=== PATIENT | female | born 1990 | race Caucasian/White ===

== ENCOUNTER 2020-03-31 12:43 | Inpatient (IN) | payer OTHER ==
[~2020-03-31] VITALS: Ht 152.4 cm; Wt 25.6 kg
[~2020-03-31 12:43] MED LIST: DEP125 PO; KLO1 PO; PHENOBARBITAL PO
[2020-03-31 12:56] VITALS: Ht 152.4 cm; Wt 25.6 kg
--- NOTE | 2020-03-31 13:30 | NUR ---
PT BIB MOM C/O ABSCESS TO RECTAL REGION X 2 DAYS. MOM REPORTS ABSCESS APPEARED 2 DAYS AGO AND SHE HAS BEEN PUTTING "STEROID CREAM" ON IT. PT MOM REPORTS "I THINK IT IS PAINFUL BECAUSE SHE WINSES WHEN I PUT THE CREAM ON". RED, INFLAMED SKIN NOTED TO LEFT SIDE OF RECTAL REGION. NO BLEEDING OR DISCHARGE NOTED. PT NOTED IN BRIEFS AT THIS TIME. MOM REPORTS PT HX OF CEREBRAL PALSEY, PT WHEELCHAIR BOUND AND NONVERBAL, PER MOM THIS IS PT BASELINE. PT GOWNED AND PLACED ON FULL CM, NSR NOTED. BOTH SIDE RAILS UP FOR FALL PRECAUTIONS. MSE COMPLETED BY DR DONG. MOM AT THE BEDSIDE. WHEELCHAIR IN PT ROOM.
[2020-03-31 14:10] LABS: PLATELET COUNT 231 x10^3mcL (130-400); RED CELL DISTRIBUTION WIDTH 13.4 % (11.5-14.5)
[2020-03-31 14:24] LABS: CALCIUM 8.4 mg/dL (8.5-10.1); CARBON DIOXIDE 30.2 mmol/L (21-32); CHLORIDE SERUM 103 mmol/L (98-107); CREATININE SERUM 0.4 mg/dL (0.6-1.0); GFR1 > 60 mL/min; GLUCOSE SERUM 95 mg/dL (74-106); SODIUM SERUM 138 mmol/L (136-145)
[2020-03-31 14:28] LABS: ALKALINE PHOSPHATASE 71 U/L (46-116); ALT/SGPT 9 U/L (14-59); AST/SGOT 13 U/L (15-37); TOTAL PROTEIN, SERUM 7.2 g/dL (6.4-8.2)
[2020-03-31 14:30] LABS: ALBUMIN 2.7 g/dL (3.4-5.0)
[2020-03-31 14:32] LABS: rbc morphology (normal/abnorm) NORMAL (NORMAL)
--- NOTE | 2020-03-31 15:00 | NUR ---
REPORT GIVEN TO DANIAL PARR. HE WILL ASSUME FURTHER CARE OF THIS PT
--- NOTE | 2020-03-31 15:36 | NUR ---
PT TOLERATED STRAIGHT CATH. PT NOW LAYING SUPINE WITH EYES CLOSED. PT EASILY AROUSABLE. EYES TRACKING APPROPRIATELY.
--- NOTE | 2020-03-31 15:39 | NUR ---
RECEIVED REPORT FROM DANIAL PARR. I WILL ASSUME FURTHER CARE OF THIS PT
--- NOTE | 2020-03-31 16:04 | NUR ---
PT NOTED LAYING IN ER GURNEY. PT APPEARS CALM, NO DISTRESS NOTED AT THIS TIME. PT VITAL SIGNS STABLE, MOM REMAINS AT THE BEDSIDE. WILL CONTINUE TO MONITOR
--- NOTE | 2020-03-31 16:04 | NUR ---
PT NOTED LAYING IN ER GURNEY. PT APPEARS CALM AT THIS TIME, NO DISTRESS NOTED. MD AWARE OF PT VITAL SIGNS. MOM REMAINS AT THE BEDSIDE. IV FLUIDS RUNNING PER EMAR ORDERS AT THIS TIME. AWAITING FURTHER ORDERS
[2020-03-31 16:17] LABS: microscopic required? YES; urine erythrocyte TRACE (NEGATIVE)
[2020-03-31] MEDS ORDERED: KEPPRA100 MG/M1 (16:53)
--- NOTE | 2020-03-31 17:45 | NUR ---
REPORT CALLED TO DANIAL MATA ON TELE UNIT. HE WILL ASSUME FURTHER CARE OF THIS PT
--- NOTE | 2020-03-31 17:51 | NUR ---
MOM PHONE NUMMBER: [phone] PERFECTO (OTHER CONTACT INFO PROVIDED BY MOM): [phone]
--- NOTE | 2020-03-31 18:34 | NUR ---
RECEIVED PT FROM ED VIA GUERNEY, CAME IN DUE TO RIGHT BUTTOCK WOUND. PT IS NON-VERBAL, RESPONDS ON PAINFUL STIMULI. NO SOB NOTED, LUNG SOUNDS CTA. O2 SAT=96%, RA. NO S/S OF CHEST PAIN/PRESSURE, SINUS TACHYCARDIA ON THE MONITOR, HR AT 107. NO S/S OF ABDOMINAL DISCOMFORT. LAST BM=03/31/20, FORMED. URINE INCONTINENT. W/ ABSCESS ON THE RIGHT BUTTOCK, NO DRAINAGE/FOUL ODOR NOTED. IV SITE PATENT AND INTACT. SIDE RAILS UPX2. CALL LIGHT ON REACH. PT'S MOTHER AT BEDSIDE. ENDORSED TO PRIMARY NURSE ADOLFO FOR CONTINUITY OF CARE
[2020-03-31 18:36] VITALS: BP 88/69
--- NOTE | 2020-03-31 19:47 | NUR ---
RECEIVED REPORT FROM OUTGOING NURSE Jimmie.PATIOENT IN BED,AWAKE,ALERT,BUT NONVERBSLLY RESPONSIVE. SKIN WARM AND DRY TO TOUCH.RESPIRATION EVEN AND UNLABORED,NO RESPIRASTORY DISTRESS.ON TELE #6 NST.ON NS AT 80 ML/HR TO RFA INFUSING WELL.NOTED RT. BUTTOCK ABSCESS.ENCOURAGED TO TURN AND REPOSITIONED IN BED.FAMILY MEMBER MOTHER AT BEDSIDE.CALL LIGHT WITHIN REACH.
[2020-03-31 22:10] VITALS: BP 100/64
[2020-03-31] MEDS ORDERED: KEPPRA250 M1 PO (23:00)
--- NOTE | 2020-04-01 05:23 | NUR ---
PATIENT HAD EPISODES OF ANXIETY WHEN PATIENT CARE RENDERED OR TOUCH.ON NST TELE MONITOR .PROVIDED COMFORT MEAUSURES AND REASSURANCE.TURNED AND REPOSITIONED Q 2 HRS AND PRN .CALL LIGHT WITHIN REACH.
[2020-04-01 05:56] VITALS: BP 104/77
--- NOTE | 2020-04-01 07:15 | NUR ---
PT IS RESTING IN BED WITH EYES CLOSED. MOTHER IS AT BEDSIDE. PT HAS HX OF SEIZURES AND CEREBRAL PALSY. PT IS ON SEIZURE PRECAUTIONS AND IS NONVERBAL. PT IS ON RA. PT IS NOT EXHIBITING ANY CHEST PAIN/PRESSURE AT THIS MOMENT. TELE #6, HR 111. PULSES ARE PALPABLE AND PRESENT WITH NO SIGNS OF EDEMA. BOWEL SOUNDS NORMOACTIVE, NO COMPLAINTS OF N/V AT THIS TIME. PT IS INCONTINENT. EXHIBITS GENERALIZED WEAKNESS, CONTRACTED ON BUE, AND WITH LIMITED ROM FOR ALL EXTREMITIES. THERE IS A RIGHT BUTTOCK ABSCESS. PT DOES NOT COMPLAIN OF PAIN AT THIS TIME. IV IS PATENT AND FLUSHING ON THE RFA WITH NS @80ML/HR. NO SIGNS OF REDNESS OR SWELLING. MOTHER MADE AWARE OF PROCEDURE TODAY. KEEP NPO. SIDE RAILS X2 ARE UP WITH PADS, CALL LIGHT WITHIN REACH.
--- NOTE | 2020-04-01 07:45 | NUR ---
IV PATENT AND FLUSHED, NO SIGNS OF SWELLING AND REDNESS. PT IS BROUGHT TO OR VIA BED. ACCOMPANIED BY PTS MOTHER.
[2020-04-01 08:11] LABS: PLATELET COUNT 193 x10^3mcL (130-400); RED CELL DISTRIBUTION WIDTH 13.3 % (11.5-14.5)
[2020-04-01 08:26] LABS: CALCIUM 8.1 mg/dL (8.5-10.1); CARBON DIOXIDE 28.5 mmol/L (21-32); CHLORIDE SERUM 103 mmol/L (98-107); CREATININE SERUM 0.4 mg/dL (0.6-1.0); GFR1 > 60 mL/min; GLUCOSE SERUM 90 mg/dL (74-106); MAGNESIUM 1.8 mg/dL (1.8-2.4); PHOSPHOROUS 2.5 mg/dL (2.5-4.9); POTASSIUM SERUM 4.1 mmol/L (3.5-5.1); SODIUM SERUM 138 mmol/L (136-145)
--- NOTE | 2020-04-01 12:00 | NUR ---
RECEIVED REPORT FROM OR NURSE PARKER.
[2020-04-01 12:18] LABS: BAND NEUTROPHIL 4 % (0-10); MONOCYTE 10 % (0-7); SEGMENTED NEUTROPHILS 64 % (37-75); rbc morphology (normal/abnorm) NORMAL (NORMAL)
--- NOTE | 2020-04-01 12:19 | NUR ---
PT RECEIVED FROM OR, TRANSPORTED BY BED.
[2020-04-01 16:11] VITALS: BP 90/57
--- NOTE | 2020-04-01 16:28 | NUR ---
PATIENT'S MOTHER REFUSED DEPAKOTE PO TABLET TO BE CRUSHED AND MIXED WITH APPLESAUCE STATED PREFER TO USE LIQUID DEPAKOTE. SPOKE TO PHARMACIST STATED LIQUID FORM IS NOT AVAILABLE.
--- NOTE | 2020-04-01 19:15 | NUR ---
PT ENDORSED TO FILM ARCHIVIST RN. MOTHER IS PRESENT AT BEDSIDE. PT IS AWAKE AND ALERT, IS NOT EXPERIENCING SYMPTOMS OF ACUTE DISTRESS. DRESSING TO RIGHT BUTTOCK DRY AND INTACT. NS INFUSING TO THE RFA, NO SWELLING NOTED.
--- NOTE | 2020-04-01 19:38 | NUR ---
I HAVE REVIEWED THE DATA COLLECTION BY RN (NAME):SENA AMEZQUITA. ENTERED ON (DATE/TIME):04/01/20 7A-7P. I CONCUR WITH THE DATA AND ANY EXCEPTIONS OR COMMENTS ARE LISTED BELOW:
--- NOTE | 2020-04-01 19:55 | NUR ---
RECEIVED REPORT FROM OUTGOING NURSE.AWAKE,ALERT,AND ORIENTED,NONVERBALLY RESPONSIVE. SKIN WARM AND DRY TO TOUCH.RESPIRATION EVEN AND UNLABORED,NO RESPIRATORY DISTRESS.TELE #6 NST.VOIDING FREELY INCONTINENTLY,NO HEMATURIA,NO DYSURIA.S/P RIGHT BUTTOCK I AND D WITH DRESSING CLEAN AND INTACT.DENIES PAIN AND DISCOMFORT. FAMILY IN THE BEDSIDE PER REQUEST.CALL LIGHT WITHIN REACH.
[2020-04-01 21:43] VITALS: BP 94/61
--- NOTE | 2020-04-02 05:11 | NUR ---
PATIENT SLEPT WELL AT NIGHT.NO EPISODES OF SEIZURE ACTIVITY NOTED.TURNED AND REPOSITIONED Q 2 HOURS AND NEED .RT. BUTTOCK WOUND DRESSING CHANGED DUE TO SOILED WITH BM.PROVIDED GOOD PERSONAL AM CARE.NO S/S OF RESPIRATORY DISTRESS.AFEBRILE.
[2020-04-02 05:39] VITALS: BP 93/46
--- NOTE | 2020-04-02 07:30 | NUR ---
RECEIVED PT FROM ANKITA BARROW. PT IS AAOX0. PT NON VERBAL, SEIZURE PRECAUTIONS IN PLACE. PT MOTHER AT BEDSIDE. PT ON TELE #6. NO INDICATION OF CHEST PAIN. PT ON RA, NO SOB OR DISTRESS. IV TO LFA, NS RUNNING @ 80 CC/HR. CDI AND PATENT. PT DENIES PAIN OR DISCOMFORT. ALL COMFORT AND SAFETY MEASURES IN PLACE. BED IN LOW POSITION, 2 SIDE RAILS UP. CALL LIGHT WITH IN REACH. ALL QUESTIONS AND CONCERNS ADDRESSED. WILL CONTINUE TO MONITOR PT.
[2020-04-02 07:42] LABS: CALCIUM 7.8 mg/dL (8.5-10.1); CARBON DIOXIDE 28.9 mmol/L (21-32); CHLORIDE SERUM 101 mmol/L (98-107); CREATININE SERUM 0.4 mg/dL (0.6-1.0); GFR1 > 60 mL/min; GLUCOSE SERUM 116 mg/dL (74-106); MAGNESIUM 1.8 mg/dL (1.8-2.4); PHOSPHOROUS 2.5 mg/dL (2.5-4.9); POTASSIUM SERUM 3.3 mmol/L (3.5-5.1); SODIUM SERUM 136 mmol/L (136-145)
[2020-04-02 07:46] LABS: BASOPHIL % 0.1 % (0-2); PLATELET COUNT 219 x10^3mcL (130-400); RED CELL DISTRIBUTION WIDTH 13.3 % (11.5-14.5)
[2020-04-02 08:02] VITALS: BP 91/51
--- NOTE | 2020-04-02 10:54 | NUR ---
MADE DR AWAD AWARE OF PT HOME MEDICATION STATING 5 CAPS, BUT PT'S MOTHER STATING SHE TAKES [address] AWAD STATED OKAY TO CONTINUE TO GIVE 4 CAPSULES. ALL QUESTIONS AND CONCERNS ADDRESSED. WILL CONTINUE TO MONITOR PT.
[2020-04-02 12:43] VITALS: BP 101/56
--- NOTE | 2020-04-02 14:20 | NUR ---
IN TO SEE PT. PT REMAINS STABLE WITH NO ACUTE CHANGES TO STATUS. MOTHER AT BEDSIDE. ALL QUESTIONS AND CONCERNS ADDRESSED. WILL CONTINUE TO MONITOR PT.
--- NOTE | 2020-04-02 16:59 | NUR ---
Initial Nutrition Assessment: [address] SANTIAGO 30F NT Nursing Triger: Appears underweight/malnourished Dx: Perianal abscess, sepsis PMHx: Seizures, Cerebral Palsy PSHx: none Labs: (04/02) K 3.3L, BG 116H, BUN 5.0H, CR 0.4L, RBC 2.96L, H/H 9.8L/29L, LYMPH% 15.9L, MONO% 13.7H (03/31) ALB 2.7L, AST 13L, ALT 9L, ALK 71 Meds: Phenobarbital, clonazepam, Keppra, Cipro, Potassium Chloride, Flagyl, Zofran Diet: Puree PO intake since admission: (04/01) D: 60%, (04/02) B: 50%, Average 55% x 2 meals Ht: 152.4 cm/60 in Wt: 25.57kg/56 lbs BMI: 11 kg/m2 Bed scale: 25.7 kg IBW: 45.5 kg/100 lbs %IBW: 56% UBW: 29.5 kg/65 lb (1 year ago) Age: 30 y/o Food Allergies: none per pt's mother Edema: +2 BLE Last BM: 03/31 Skin: s/p R buttock I&D with dressing clean and intact Fernando: 14 Per consultation report (03/31) 30-year-old female with a history of cerebral palsy presenting with a 1-week history of gradually worsening right buttock pain, redness, swelling, and purulent drainage. History obtained from mother as patient is non-verbal. She endorses history of similar sores 3 years ago. Patient also has a history of frequent seizures, last one was 2 days ago. Denies fever, cough, vomiting, diarrhea, foul urine, hematuria. Denies respiratory distress, rashes, nasal congestion. Denies COVID contacts. Pt was admitted with dx: right perianal abscess, Sepsis, Cerebral palsy, Seizure disorder, Anemia RD Note (04/02) Per progress note (04/02): Patient postop day 1 I&D tolerated well. Mother at bedside, some vomiting after potassium supplementation otherwise doing well no acute complaints. During visit, pt was lying in bed, and her mother was feeding her lunch. Pt's mother reported that pt has good appetite, and tolerates well her diet. Furthermore, pt's mother reported that pt ate all her food last night and this morning about 50%. Pt drank her Ensure this morning. Additionally, per pt's mother, her daughter eats well at home, but she has always been "skinny." Pt's mother mentioned that pt eats Regular diet at home, but it must be mashed or pureed. Per pt's mother, pt had a vomit this morning after taking potassium supplementation. Per nutrition physical exam, pt's scapular bones were prominent, and her bones were prominent with little sign of muscle around her knees. Problem with: N/V/D/C: vomiting after potassium supplementation. V/D/C none per pt's mother Problems with: Chewing: Swallowing: none per pt's mother Current appetite: good per pt's mother Recent wt change: about 9 lbs in 1 year %wt change: 14 % in 1 year Height: 60 in per pt's mother Vitamin/Supplement use: none per pt's mother Special diet at home: none per pt's mother Physical activity: stretching exercises per pt's mother Nutrition education given (specify specific nutrition education and handout given): none at this moment Food-drug interactions? Education given? n/a Estimated Nutritional Needs Based on actual body weight (26 kg) Energy: 780 - 910 kcal/day (30 - 35 kcal/kg for sepsis and malnourishment, repletion) Protein: 39 - 52 g/day (1.5 - 2 g/kg for sepsis, malnourishment, repletion) Fluid: 780 - 910 mL/day (1 mL/kcal) Nutrition Diagnosis: 1. Malnutrition r/t chronic illness a/e/b 9# weight loss in 1 year and BMI 11 kg/m2 2. Increased energy and protein needs r/t critical illness and skin integrity a/e/b pt was admitted for sepsis and s/p I &D. Intervention 1. Recommend continue with puree diet as tolerated. Monitor/Evaluate Goal: PO intake at least 75% of estimated needs Monitor: PO intake, Labs, GI function F/U in 2-3 days as high risk 04/04-
--- NOTE | 2020-04-02 17:00 | NUR ---
1. Recommend continue with puree diet as tolerated.
--- NOTE | 2020-04-02 17:57 | NUR ---
MADE DR ERICKSON AWARE OF BP 83/[address] ERICKSON GAVE TELEPHONE/READBACK ORDER FOR NS 500 ML IV @500ML/HR. ORDER CONFIRMED AND READ BACK. ALL QUESTIONS AND CONCERNS ADDRESSED. WILL CONTINUE TO MONITOR PT.
--- NOTE | 2020-04-02 19:25 | NUR ---
REPORT GIVEN TO NIGHT RN. PT REMAINED STABLE THROUGHOUT MY SHIFT. ALL QUESTIONS AND CONCERNS ADDRESSED. ALL CARES ENDORSED.
[2020-04-02 20:51] VITALS: BP 90/48
--- NOTE | 2020-04-02 21:39 | NUR ---
RECEIVED PATIENT IN BED.AWAKE,ALERT,AND ORIENTED,BUT NONVERBAL.SKIN WARM AND DRY TO TOUCH.NST TELE #6. HAD EPISODES OF ST AT 150'S WHEN AGITATED BUT NOT SUSTAINING.KEPT COMFORTABLE.RT.BUTTOCK S/P I AND D OF RT.BUTTOCK DRESSING CLEAN AND INTACT.MOTHER AT BEDSIDE.CALL LIGHT WITHIN REACH.
--- NOTE | 2020-04-03 05:53 | NUR ---
PATIENT SLEPT AT NIGHT.NO EPISODE OF SEIZURE ACTIVITY NOTED.PATIENT TURNED AND REPOSITIONED Q 2 HRS. AND PRN.NO S/S OF RESPIRATORY DISTRESS.NST 113 ON TELE MONITOR.CALL LIGHT WITHIN.PATIENT MOTHER INFORMED STAFF PT. TAKING KEPPRA 5OOMG PO DAILY ,PAGED AWAITING TO CALL BACK.WILL ENDORSED TO DAYSHIFT RN TO CONT. TO FOLLOW UP WITH MD.KEPT COMFORTABLE.
[2020-04-03 05:56] VITALS: BP 104/73
[2020-04-03 06:34] LABS: BASOPHIL % 0.6 % (0-2); PLATELET COUNT 269 x10^3mcL (130-400); RED CELL DISTRIBUTION WIDTH 13.3 % (11.5-14.5)
[2020-04-03 06:53] LABS: CALCIUM 7.7 mg/dL (8.5-10.1); CARBON DIOXIDE 30.8 mmol/L (21-32); CHLORIDE SERUM 101 mmol/L (98-107); CREATININE SERUM 0.4 mg/dL (0.6-1.0); GFR1 > 60 mL/min; GLUCOSE SERUM 89 mg/dL (74-106); MAGNESIUM 1.6 mg/dL (1.8-2.4); PHOSPHOROUS 2.5 mg/dL (2.5-4.9); SODIUM SERUM 138 mmol/L (136-145)
[2020-04-03 08:02] VITALS: BP 88/52
--- NOTE | 2020-04-03 10:15 | NUR ---
DR AWAD MADE AWARE OF PT BP 88/50 MAP 64 AND PT'S HR 114-120s. DR AWAD MADE AWARE OF MOTHER STATING KEPPRA AT HOME DOSE IS 200 MG BID. ALL QUESTIONS AND CONCERNS ADDRESSED. AWAITING ORDERS.
--- NOTE | 2020-04-03 10:45 | NUR ---
RECEIVED CALL FROM LAB. LAB STATING DR AWAD PLACED ORDER FOR KEPPRA DRAW INCORRECTLY. LAB ASKING IF OKAY TO D/C ORDER AND REPLACE ORDER. DR AWAD MADE AWARE AND STATING OKAY. ALL QUESTIONS AND CONCERNS ADDRESSED. WILL FOLLOW UP W/ LAB.
[2020-04-03 12:13] VITALS: BP 101/64
[2020-04-03 13:38] VITALS: BP 101/64
--- NOTE | 2020-04-03 13:40 | NUR ---
LAB CONFIRMING LAKISHA NOWAK COLLECTED AND RECEIVED. RESULTS PENDING AT THIS TIME. UNLOADER OPERATOR JASBIR STATING PENDING RESULTS WILL TAKE A FEW DAYS. ALL QUESTIONS AND CONCERNS ADDRESSED. WILL CONTINUE TO MONITOR PT.
--- NOTE | 2020-04-03 14:57 | NUR ---
DIETITIAN CO-SIGN The Nutrition Notes documented by the Post Office Manager have been reviewed. Reviewed/Co-Signed by: Rodri Montoya Documentation Done by: RODRI HALEY
--- NOTE | 2020-04-03 16:45 | NUR ---
PT'S MOTHER [facility] GIVEN D/C INSTRUCTIONS. PT'S MOTHER VERBALIZED UNDERSTANDING OF D/C INSTRUCTIONS. ALL QUESTIONS AND CONCERNS ADDRESSED. PRESCRIPTION GIVEN TO PT'S MOTHER. ID BANDS REMOVED. IV D/C, DRESSING APPLIED. CATHETER INTACT. TELE MONITOR D/C AND RETURNED TO STATION. PT IS STABLE FOR D/C AT THIS TIME.
--- NOTE | 2020-04-03 17:00 | NUR ---
PT TAKEN DOWN TO LOBBY ACCOMPANIED BY MOTHER AND BIOINFORMATICIST. PT STABLE FOR DISCHARGE.
== END 2020-04-03 16:45 | disposition home or self-care (01) | DRG 720 ==
LOC: ED 12:43 → DU 16:37
PROVIDERS: Emergency Medicine; Surgery; ADMIT Hospitalist; ATTEND Hospitalist
PROC: 0D9QXZZ Drainage of Anus, External Approach (ICD-10-PCS; principal; 2020-04-01 08:00)
DX: A41.9 Sepsis, unspecified organism (principal); K61.0 Anal abscess; G80.9 Cerebral palsy, unspecified; D64.9 Anemia, unspecified; G40.909 Epilepsy, unspecified, not intractable, without status epilepticus; Z20.828 Contact with and (suspected) exposure to other viral communicable diseases
CPT/HCPCS: 82542; 90715; G0378; J0690; J0744; J2001; J2250; J2270; J3010; J3480; J3490; J7030; J7040; J7060; Q0092; Q9967